=== PATIENT | female | born 1990 | race Two or more races ===

== ENCOUNTER 2021-05-31 11:25 | Inpatient (IN) | payer MEDICAID ==
[~2021-05-31] VITALS: Ht 157.5 cm; Wt 72.6 kg
[2021-05-31] MEDS ORDERED: BUTORPHANOL TARTRATE 2 MG/1 ML VIAL IV PRN ×2 (13:15)
[2021-05-31] MEDS ORDERED: DERMOPLAST 60ML BOTTLE TOP PRN (13:15)
[2021-05-31] MEDS ORDERED: LIDOCAINE 2%HCL (LOCAL ANESTH.) INJ 20ML MDV IJ PRN (13:15)
[2021-05-31] MEDS ORDERED: PENICILLIN G POT 5MIL/D5 50ML 50 ML IV ONE (13:15)
[2021-05-31] MEDS ORDERED: PROMETHAZINE HCL 25 MG/ML 1ML IV PRN (13:15)
[2021-05-31] MEDS ORDERED: PHISODERM TOP SOLN 240ML BTL TOP PRN (13:15)
[2021-05-31] MEDS ORDERED: WITCH HAZEL-GLYCERIN PAD TOP PRN (13:15)
[2021-05-31] MEDS ORDERED: BETAMETHASONE ACET (30mg/5ml) 5ml Vial 6mg/ml IM ONE (13:30)
[2021-05-31] MEDS ORDERED: ACCU-CHEK COMFORT CURVE STRIP VI SCH (14:00)
[2021-05-31] MEDS: LACTATED RINGER'S 1,000 ML IV SCH ×2 (14:16→16:56)
[2021-05-31] MEDS ORDERED: LACT. RINGERS/OXYTOCIN 20UNITS 500 ML IV PRN ×2 (14:45)
[2021-05-31] MEDS ORDERED: AZITHROMYCIN 250 MG TAB PO ONE (14:45)
[2021-05-31 14:48] LABS: Basophils # (auto) 0 10 ^3/uL (0-0.2); Basophils % (auto) 0.1 % (0.0-2.0); Eosinophils # (auto) 0 10 ^3/uL (0-0.8); Eosinophils % (auto) 0.5 % (0.0-7.0); Hematocrit 34.2 % (36.0-46.0); Hemoglobin 11.1 g/dL (12.2-16.2); Lymphocytes # (auto) 1.8 10 ^3/uL (0.4-5.4); Lymphocytes % (auto) 18.5 % (10.0-50.0); Mean Corpuscular Hemoglobin 24.9 pg (28.0-32.0); Mean Corpuscular Hgb Conc. 32.3 g/dL (32.0-36.0); Mean Corpuscular Volume 77.1 fL (80.0-100.0); Monocytes # (auto) 0.5 10 ^3/uL (0-1.3); Neutrophils # (auto) 7.3 10 ^3/uL (1.6-8.6); Neutrophils % (auto) 75.9 % (37.0-80.0); Nucleated Red Blood Cells % 0.1 %; Red Blood Cells 4.44 10^6/uL (4.0-5.20); Red Cell Distribution Width 14.8 % (11.8-14.3); White Blood Cell 9.6 10^3/uL (4.4-10.8)
[2021-05-31 14:50] LABS: INR 0.92 (0.9-1.15); Partial Thromboplastin Time 23.1 sec (23.6-33.0)
[2021-05-31 14:51] LABS: Urine Bacteria FEW /hpf (None Seen); Urine Blood 3+ /uL (Negative); Urine Specific Gravity 1.007 (1.001-1.035); Urine WBC 89 /hpf (0 - 5)
[2021-05-31 14:53] LABS: Albumin 2.4 g/dL (3.4-5.0); Potassium 4.1 mmol/L (3.5-5.1); Uric Acid 5.3 mg/dL (2.6-6.0)
[2021-05-31 14:55] LABS: Amphetamine Screen, Urine NEGATIVE (NEGATIVE); Barbiturate Scree,Urine NEGATIVE (NEGATIVE); Benzodiazephine Screen, Urine NEGATIVE (NEGATIVE); Cannabinoid Screen, Urine NEGATIVE (NEGATIVE); Cocaine Screen, Urine NEGATIVE (NEGATIVE); Opiate Scree,Urine NEGATIVE (NEGATIVE); Phencyclidine Screen, Urine NEGATIVE (NEGATIVE)
[2021-05-31 14:56] LABS: Bilirubin, Total 0.2 mg/dL (0.2-1.0); Total Protein 7.4 g/dL (6.4-8.2)
[2021-05-31] MEDS ORDERED: LIDOCAINE HCL 2 %PF INJ 10ML AMP IJ ONE (16:00)
[2021-05-31] MEDS ORDERED: ROPIVACAINE HCL 200 ML EPI SCH (16:00)
[2021-05-31] MEDS ORDERED: LACTATED RINGER'S 500 ML IV ONE (16:00)
[2021-05-31] MEDS ORDERED: fentaNYL CITRATE 100 MCG/2 ML VL IV ONE (16:00)
[2021-05-31] MEDS ORDERED: NALOXONE HCL 0.4 MG/ML VIAL IV ONE (16:00)
[2021-05-31] MEDS ORDERED: ePHEDrine SULFATE 50 MG/ML AMP IV ONE (16:00)
[2021-05-31] MEDS ORDERED: PENICILLIN G POTASSIUM 2,500,000 UNITS in D5W 5% 50 ML IV SCH (17:15)
[2021-05-31] MEDS ORDERED: IBUPROFEN 600 MG TAB PO PRN (21:30)
[2021-05-31] MEDS ORDERED: ACETAMINOPHEN 325 MG TAB PO PRN (21:30)
[2021-05-31] MEDS: DOCUSATE SOD 100 MG CAP PO SCH (22:00)
[2021-05-31 23:00] VITALS: BP 126/76
[2021-06-01 03:00] VITALS: BP 119/73
[2021-06-01 06:06] LABS: RPR Non Reactive (Non Reactive); Rubella Antibodies, IgG 4.21 index (Immune >0.99)
[2021-06-01 07:00] VITALS: BP 118/66
[2021-06-01 11:00] VITALS: BP 117/64
[2021-06-01 15:00] VITALS: BP 110/65
[2021-06-01 19:25] VITALS: BP 121/87
[2021-06-01] MEDS: DOCUSATE SOD 100 MG CAP PO SCH (22:00)
[2021-06-01 23:10] VITALS: BP 125/82
[2021-06-02 02:45] VITALS: BP 115/79
[2021-06-02 07:10] VITALS: BP 123/63
[2021-06-02] MEDS ORDERED: PREN1TAB71 OR (09:27)
[2021-06-02 13:42] VITALS: BP 126/86
== END 2021-06-02 13:54 | disposition home or self-care (01) | DRG 560 ==
LOC: LDRP 11:25 → OBSVTOIN 13:15 → LDRP 14:00
PROVIDERS: ADMIT Obstetrics & Gynecology; ATTEND Obstetrics & Gynecology
PROC: 10E0XZZ Delivery of Products of Conception, External Approach (ICD-10-PCS; principal; 2021-05-31)
PROC: 3E0R3BZ Introduction of Anesthetic Agent into Spinal Canal, Percutaneous Approach (ICD-10-PCS; 2021-05-31)
PROC: 00HU33Z Insertion of Infusion Device into Spinal Canal, Percutaneous Approach (ICD-10-PCS; 2021-05-31)
DX: O42.913 Preterm premature rupture of membranes, unspecified as to length of time between rupture and onset of labor, third trimester (principal); Z37.0 Single live birth; O24.429 Gestational diabetes mellitus in childbirth, unspecified control; Z3A.36 36 weeks gestation of pregnancy; Z20.822 Contact with and (suspected) exposure to COVID-19
CPT/HCPCS: 36415; 59025; 59409; 62282; 76805; 80053; 80307; 81001; 82962; 84112; 84550; 85025; 85610; 85730; 86592; 86762; 86850; 86900; 86901; 87340; 87426; 94760; 96360; 96361; 96365; 96366; G0378; J2540; J2590; J7060